=== PATIENT | male | born 1990 | race African-American/Black ===

== ENCOUNTER 2019-07-25 15:27 | Emergency (ER) | payer MEDICAID ==
[~2019-07-25] VITALS: Ht 195.6 cm; Wt 127.0 kg
[2019-07-25 16:32] VITALS: BP 143/94
[2019-07-25] MEDS: IBUPROFEN 800MG TABLET PO ONE (16:32)
== END 2019-07-25 17:58 | disposition home or self-care (01) ==
LOC: ER 15:27
DX: S62.336A Displaced fracture of neck of fifth metacarpal bone, right hand, initial encounter for closed fracture (principal); S62.337A Displaced fracture of neck of fifth metacarpal bone, left hand, initial encounter for closed fracture; F12.10 Cannabis abuse, uncomplicated; X58.XXXA Exposure to other specified factors, initial encounter; Y93.89 Activity, other specified; Y92.89 Other specified places as the place of occurrence of the external cause; Y99.8 Other external cause status
CPT/HCPCS: 29125; 73130; 99283

== ENCOUNTER 2023-05-31 23:38 | Emergency (ER) | payer OTHER ==
[~2023-05-31] VITALS: Ht 193 cm; Wt 134.4 kg
[2023-05-31 23:48] VITALS: BP 178/100; PULSE 97; RESP 18; TEMP 98.7; O2SAT 98
[2023-06-01] MEDS ORDERED: TETANUS, DIPHTHERIA, PERTUSSIS VAC/PF 0.5ML (>10YR OLD) IM ONE ×2 (00:30→03:15)
[2023-06-01] MEDS ORDERED: TETRACAINE 0.5% OPHTH DROPS 4ML LEFTEYE ONE (00:30)
[2023-06-01] MEDS ORDERED: FLUORESCEIN SODIUM 1MG/STRIP LEFTEYE ONE (00:30)
[2023-06-01] MEDS ORDERED: BACITRACIN ZINC OINT UDPKT TOP ONE (00:30)
[2023-06-01] MEDS ORDERED: LIDOCAINE HCL 1% 20ML VIAL (Pyxis) INJ INFIL ONE (00:30)
[2023-06-01] MEDS ORDERED: HYDROCODONE/ACETAMINOPHEN 10/325MG TABLET PO ONE (02:00)
[2023-06-01] MEDS ORDERED: TOPUD MT (02:43)
[2023-06-01] MEDS ORDERED: NAPR-681 MT (02:43)
[2023-06-01] MEDS ORDERED: OCUFLX RIGHTEYE (02:43)
== END 2023-06-01 03:40 | disposition home or self-care (01) ==
LOC: ER 06-01 01:52
DX: S05.41XA Penetrating wound of orbit with or without foreign body, right eye, initial encounter (principal); X08.8XXA Exposure to other specified smoke, fire and flames, initial encounter; Y93.89 Activity, other specified; Y92.89 Other specified places as the place of occurrence of the external cause; Y99.8 Other external cause status
CPT/HCPCS: 70486; 90715; 12011; 90471; 99285; J3490; Z7610 ×3